=== PATIENT | male | born 1995 | race Two or more races ===

== ENCOUNTER 2024-08-11 13:32 | Emergency (ER) | payer OTHER ==
[~2024-08-11] VITALS: Ht 180.3 cm; Wt 93.0 kg
[2024-08-11] MEDS ORDERED: ORPHENADRINE CITRATE 30 MG/ML AMPUL IM STA (14:55)
[2024-08-11] MEDS ORDERED: KETOROLAC TROMETHAMINE 15 MG VIAL IM STA (14:55)
[2024-08-11] MEDS ORDERED: DEXAMETHASONE SODIUM PHOSPHATE 4 MG/ML VIAL IM STA (14:56)
[2024-08-11] MEDS ORDERED: BACLOFEN10 MG PO (16:36)
[2024-08-11] MEDS ORDERED: DICLOFENAC SODI75 MG PO (16:36)
== END 2024-08-11 16:53 | disposition home or self-care (01) ==
LOC: ER 13:43
DX: M79.605 Pain in left leg (principal)